=== PATIENT | female | born 1975 | race Caucasian/White ===

== ENCOUNTER 2016-10-20 18:40 | Emergency (ER) | payer BC, MEDICAID ==
[~2016-10-20] VITALS: Ht 162.6 cm; Wt 72.3 kg
[~2016-10-20 18:40] MED LIST: DSS100 PO; HYDR-3965 PO; IBUP-2070 PO; PREN1TAB80 PO
[2016-10-20] MEDS ORDERED: ONDANSETRON HCL 4 MG/2 ML VIAL IVP ONE (19:45)
[2016-10-20] MEDS ORDERED: SODIUM CHLORIDE 0.9% 1,000 ML IV ONE (19:45)
[2016-10-20] MEDS ORDERED: MORPHINE SULFATE 4 MG/ML SYRINGE IVP ONE (19:45)
[2016-10-20 21:11] VITALS: BP 141/89
== END 2016-10-20 22:51 | disposition short-term general hospital (02) ==
LOC: EMS 18:41
DX: T20.20XA Burn of second degree of head, face, and neck, unspecified site, initial encounter (principal); T21.21XA Burn of second degree of chest wall, initial encounter; T22.20XA Burn of second degree of shoulder and upper limb, except wrist and hand, unspecified site, initial encounter; X12.XXXA Contact with other hot fluids, initial encounter; Y93.89 Activity, other specified; Y92.89 Other specified places as the place of occurrence of the external cause; Y99.8 Other external cause status
CPT/HCPCS: 36415; 84703; 96361; 96372; 96374; 96375; 99285; J0690; J2270; J2405; J7030